=== PATIENT | female | born 1945 | race Caucasian/White ===

== ENCOUNTER 2023-07-26 11:28 | Emergency (ER) | payer OTHER ==
[~2023-07-26] VITALS: Ht 144.8 cm; Wt 36.3 kg
[2023-07-26 11:37] VITALS: BP_SYST 112; PULSE 101; RESP 18; TEMP 97; O2SAT 92
[2023-07-26] MEDS ORDERED: IPRATROPIUM BROM 0.5 MG/2.5 ML VIAL.NEB (ATROVENT) INH ONE ×2 (12:30→14:00)
[2023-07-26] MEDS ORDERED: ALBUTEROL SULFATE 0.083% 2.5 MG/3 ML VIAL.NEB INH ONE ×2 (12:30→14:00)
[2023-07-26 12:36] LABS: BASOPHILS # (AUTO) 0.1 K/uL (0.0-0.2); BASOPHILS % (AUTO) 0.3 % (0.0-2.0); EOSINOPHILS % (AUTO) 0.1 % (0.0-4.0); HEMATOCRIT 37.5 % (36-48); LYMPHOCYTES # (AUTO) 1.5 K/uL (1.0-5.5); LYMPHOCYTES % (AUTO) 8.4 % (20.5-51.5); MEAN CORPUSCULAR HEMOGLOBIN 30 pg (27-31); MEAN CORPUSCULAR HGB CONC 32 % (32-36); MEAN CORPUSCULAR VOLUME 94 fL (79.0-98.0); MONOCYTES # (AUTO) 1.5 K/uL (0.0-1.0); MONOCYTES % (AUTO) 8.3 % (1.7-9.3); NEUTROPHILS # (AUTO) 15.3 K/uL (1.8-7.7); NEUTROPHILS % (AUTO) 82.9 % (40.0-70.0); PLATELET COUNT (AUTO) 441 K/uL (130-430); WHITE BLOOD COUNT (AUTO) 18.5 K/uL (4.8-10.8)
[2023-07-26 12:48] LABS: ANION GAP 9 (5-15); CALCIUM 9.4 mg/dL (8.4-11.0); CARBON DIOXIDE 31 mmol/L (23-29); CHLORIDE 98 mmol/L (98-107); CREATININE 0.69 mg/dL (0.55-1.30); GLUCOSE 104 mg/dL (74-106); POTASSIUM 3.9 mmol/L (3.5-5.1); SODIUM SERUM 138 mmol/L (136-145); UREA NITROGEN, BLOOD 13 mg/dL (8-21)
[2023-07-26 12:59] LABS: ALANINE AMINOTRANSFERASE 13 U/L (12-78); ALBUMIN 2.6 g/dL (3.4-4.8); ASPARTATE AMINOTRANSFERASE 13 U/L (10-37); BILIRUBIN,DIRECT 0.2 mg/dL (0.0-0.3); TOTAL BILIRUBIN 0.4 mg/dL (0.0-1.0); TOTAL PROTEIN, SERUM 7.4 g/dL (6.4-8.3)
[2023-07-26 13:00] LABS: INFLUENZA TYPE A Negative (NEGATIVE); INFLUENZA TYPE B NEGATIVE (NEGATIVE)
[2023-07-26] MEDS ORDERED: cefTRIAXone 1 GM in D5W 50 ML IV ONE (13:45)
[2023-07-26] MEDS ORDERED: methylPREDNISolone SOD SUCC/PF 62.5 MG/ML VIAL IVP ONE (13:45)
[2023-07-26] MEDS ORDERED: PRED20TA PO (14:24)
[2023-07-26] MEDS ORDERED: cefTRIAXone 1 GM VIAL ONE (14:24)
[2023-07-26] MEDS ORDERED: AUG875 PO (14:25)
[2023-07-26] MEDS ORDERED: AZIT-93 PO (14:26)
[2023-07-26] MEDS ORDERED: cefTRIAXone 1 GM VIAL IM ONE (14:30)
[2023-07-26 15:11] VITALS: BP_SYST 127; PULSE 102; RESP 23; TEMP 98.1; O2SAT 99
== END 2023-07-26 15:10 | disposition left against medical advice (07) ==
LOC: SED 11:28
DX: J44.1 Chronic obstructive pulmonary disease with (acute) exacerbation (principal); Z79.899 Other long term (current) drug therapy; Z20.822 Contact with and (suspected) exposure to COVID-19
CPT/HCPCS: 99284; 96374; 71045; 87426; 80076; 80048; 83880; 85025; 87040; 84484; 36415; 93005; 94640; 87804 ×2; 96372; J0696; J2930

== ENCOUNTER 2023-11-03 21:17 | Emergency (ER) | payer OTHER ==
[~2023-11-03] VITALS: Ht 134.6 cm; Wt 35.4 kg
[~2023-11-03 21:17] MED LIST: ALBUTEROL SULFATE 0.083% 2.5 MG/3 ML VIAL.NEB INH ONE; AUG875 PO; AZIT-93 PO; IPRATROPIUM BROM 0.5 MG/2.5 ML VIAL.NEB (ATROVENT) INH ONE; PIPERACILLIN/TAZOBACTAM 3.375 GM/VIAL (ZOSYN) IV ONE; PRED20TA PO; methylPREDNISolone SOD SUCC/PF 62.5 MG/ML VIAL ONE
[2023-11-03 21:26] VITALS: BP_SYST 134; PULSE 113; RESP 16; TEMP 99.3; O2SAT 87
[2023-11-03 21:45] LABS: HEMATOCRIT 37.7 % (36-48); HEMOGLOBIN 12.8 g/dL (12.0-16.0); MEAN CORPUSCULAR HEMOGLOBIN 32 pg (27-31); MEAN CORPUSCULAR HGB CONC 34 % (32-36); MEAN CORPUSCULAR VOLUME 94 fL (79.0-98.0); PLATELET COUNT (AUTO) 364 K/uL (130-430); RED BLOOD CELL COUNT(AUTO) 4.03 MIL/uL (4.2-6.2); RED CELL DISTRIBUTION WIDTH 13.2 % (9.0-15.0); WHITE BLOOD COUNT (AUTO) 18.3 K/uL (4.8-10.8)
[2023-11-03] MEDS: IPRATROPIUM BROM 0.5 MG/2.5 ML VIAL.NEB (ATROVENT) INH ONE (21:47)
[2023-11-03] MEDS: ALBUTEROL SULFATE 0.083% 2.5 MG/3 ML VIAL.NEB INH ONE (21:47)
[2023-11-03 22:03] LABS: PROTHROMBIN TIME 10.2 SECS (9.5-12.5)
[2023-11-03 22:13] LABS: ANION GAP 8 (5-15); CALCIUM 8.9 mg/dL (8.4-11.0); CARBON DIOXIDE 28 mmol/L (23-29); CHLORIDE 102 mmol/L (98-107); CREATININE 0.64 mg/dL (0.55-1.30); GLUCOSE 118 mg/dL (74-106); POTASSIUM 3.5 mmol/L (3.5-5.1); SODIUM SERUM 138 mmol/L (136-145); UREA NITROGEN, BLOOD 13 mg/dL (8-21)
[2023-11-03 22:20] LABS: ALANINE AMINOTRANSFERASE 7 U/L (12-78); ALBUMIN 2.7 g/dL (3.4-4.8); ASPARTATE AMINOTRANSFERASE 13 U/L (10-37); BILIRUBIN,DIRECT 0.1 mg/dL (0.0-0.3); TOTAL BILIRUBIN 0.7 mg/dL (0.0-1.0); TOTAL PROTEIN, SERUM 7.5 g/dL (6.4-8.3)
[2023-11-03] MEDS: methylPREDNISolone SOD SUCC/PF 62.5 MG/ML VIAL IVP ONE (22:29)
[2023-11-03] MEDS: PIPERACILLIN/TAZO 3.375 GM in NS 50 ML IV ONE (22:30)
[2023-11-03 22:35] LABS: BAND % (MANUAL) 15 % (0-6); BASOPHILS % (MANUAL) 0 % (0-2); EOSINOPHILS % (MANUAL) 0 % (0-7); LYMPHOCYTES % (MANUAL) 5 % (20-46); MONOCYTES % (MANUAL) 12 % (0-11); PLATELET ESTIMATE ADEQUATE (ADEQUATE)
[2023-11-03 22:36] LABS: OVALOCYTES FEW; TEAR DROP CELLS FEW
[2023-11-03 23:45] LABS: BLOOD GAS PCO2 46.6 mmHg (35.0-45.0); BLOOD GAS PH 7.415 (7.350-7.450)
[2023-11-03 23:46] LABS: ABG O2 SAT% ESTIMATE 85.3 % (94.0-100.0); ALLEN'S TEST POSITIVE (P); BLOOD GAS BASE EXCESS 3.8 mmol/L (-3.0-3.0); BLOOD GAS HCO3 29.2 mmol/L (21.0-27.0); BLOOD GAS PO2 49.6 mmHg (75.0-100.0)
[2023-11-04 03:13] LABS: INFLUENZA TYPE A Negative (NEGATIVE); INFLUENZA TYPE B NEGATIVE (NEGATIVE)
[2023-11-04 09:18] VITALS: BP_SYST 104; PULSE 104; RESP 28; TEMP 98; O2SAT 95
== END 2023-11-04 09:15 | disposition short-term general hospital (02) ==
LOC: SED 21:17
DX: J44.1 Chronic obstructive pulmonary disease with (acute) exacerbation (principal); R06.02 Shortness of breath; R05.9 Cough, unspecified; R07.89 Other chest pain; Z79.899 Other long term (current) drug therapy; Z20.822 Contact with and (suspected) exposure to COVID-19
CPT/HCPCS: 99285; 96365; 71045; 96375; 87426; 85027; 80076; 80048; 85007; 85610; 85730; 87040; 84484; 36415; 94640; 36600; 82803; 83605; 87804 ×2; J2543; 93005; J2930